=== PATIENT | female | born 1955 | race Hispanic/Latino ===

== ENCOUNTER 2019-04-16 14:04 | Inpatient (IN) | payer MEDICAID, MEDICARE ==
[~2019-04-16] VITALS: Ht 160 cm; Wt 43.6 kg
[~2019-04-16 14:04] MED LIST: BACTRIM-DS1 EA ORAL; CLONIDINE0.1 MG ORAL; FOLIC ACID1 MG ORAL; HALDOL INJECT5 MG/ML IM; MIRTAZAPINE7.5 MG ORAL; QUETIAPINE FUM100 MG ORAL; SEROQUEL25 MG ORAL; THIAMINE HCL100 MG ORAL; VENLAFAXINE HCL75 M2 ORAL; XANAX0.5 MG ORAL
--- NOTE | 2019-04-16 14:06 | NUR ---
ED Nurse Note: PT BIBA from [facility] Per EMS; Pt is here for an abscess on the 3rd digit of left hand. Pt is non-verbal; V/S stable with no s/s of acute distress noted at this time. ERMD at bedside evaluating the pt.
[2019-04-16 14:09] VITALS: BP 157/72
[2019-04-16] MEDS ORDERED: Bupivacaine 0.25% Inj 30ml INJ ONE (14:15)
--- NOTE | 2019-04-16 14:23 | Emergency Room Report ---
History of Present Illness General Chief Complaint: Skin Rash/Abscess Source: EMS Present Illness HPI Patient presents with infection of her left middle finger. She sent for evaluation here. The patient does not speak but nods yes and no to questions. She does complain of pain but will not rate the number. There is no reported fever. Patient does not communicate and is unable to answer questions. The patient was last admitted in 2014. Discharge diagnoses: 1. Complicated urinary tract infection with growth of Escherichia coli. 2. Nephrolithiasis with hydronephrosis. 3. Hematuria. 4. Proteinuria. Allergies: Coded Allergies: No Known Allergies (Unverified , 10/24/08) Patient History Limited by: medical condition Past Medical History: see triage record, old chart reviewed Past Surgical History: other - Back surgery for scoliosis Social History Narrative [facility] Reviewed Nursing Documentation: PMH: Agreed; PSxH: Agreed Nursing Documentation-PMH Hx Cardiac Problems: Yes - [place] 2000 Hx Cancer: No - benign ovarian tumors Hx Gastrointestinal Problems: No Hx Neurological Problems: Yes - scoliosis, non ambulatory Hx Cerebrovascular Accident: Yes Hx Transient Ischemic Attacks: No Hx Dementia: No Hx Alzheimer's Disease: No Hx Parkinson's Disease: No Hx Meningitis: No Hx Encephalitis: No Hx Seizures: No Hx Epilepsy: No Hx Multiple Sclerosis: No Hx Cerebral Palsy: No Hx Amyotrophic Lat Sclerosis: No Hx [place] Syndrome: No Hx Paralysis: No Hx Peripheral Neuropathy: No Hx Spinal Cord Injury: No Hx Head Trauma: No Hx Traumatic Brain Injury: No Hx Memory Loss: Yes Hx Concentration Difficulty: Yes Hx Speech Problem: Yes Hx Tremors: Yes - left arm tremor Hx Vertigo: No Hx Dizziness: No Hx Syncope: No Hx Headaches: No Hx Aphasia: No Hx Dysphasia: No Hx Numbness: No Hx Weakness: Yes Hx Fatigue: No Hx Neurologic Surgery: Yes - surgery on back (for scoliosis) in Hx Brain Shunt: No Review of Systems All Other Systems: limited Physical Exam Vital Signs Date Time Temp Pulse Resp B/P (MAP) Pulse Ox O2 Delivery O2 Flow Rate FiO2 04/16/19 14:06 98.2 92 16 157/72 (100) 98 Room Air Sp02 EP Interpretation: reviewed, normal General Appearance: alert, Chronically Ill Head: normocephalic Eyes: bilateral eye normal inspection, bilateral eye PERRL, bilateral eye EOMI ENT: moist mucus membranes Neck: supple Respiratory: lungs clear, normal breath sounds Cardiovascular #1: regular rate, rhythm Cardiovascular #2: 2+ radial (R) Gastrointestinal: normal inspection, normal bowel sounds, non tender, no mass, non-distended Genitourinary: no CVA tenderness Musculoskeletal: back normal, normal range of motion, other - Extensor contractions lower extremities Neurologic: alert, other - Abulic but sometimes nods yes and no Psychiatric: other - Apprehensive and attempting to scratch examiner Skin: other - Positive for lesion left middle finger around fingernail Procedures Incision and Drainage Incision and Drainage : Consent: Verbal Site: l middle finger Blade Size: 11 I & D Procedure: betadine prep, sterile drapes applied, sterile dressing applied, gauze wick placed Wound Location: upper extremity Wound's Depth, Shape: superficial Wound Explored: contaminated Irrigated w/ Saline (ccs): 20 Anesthesia: other - .25% bupivicaine Volume Anesthetic (ccs): 4 Splint Applied?: No Patient Tolerated: Well Complications: None Progress After digital block the area was prepped with Betadine. The abscess/paronychia was lanced and unroofed. A small amount of the lateral fingernail was excised. The wound was copiously irrigated. The dressing was applied. Medical Decision Making Diagnostic Impression: Primary Impression: Paronychia ER Course Patient presents with obvious paronychia of the left middle finger. Incision and drainage is indicated. Please see procedure note. Behavioral restraints are applied because the patient is scratching. Notify Dr. Chan patient stable for outpatient treatment. He requested to admit the patient for 23-hour observation. Last Vital Signs Date Time Temp Pulse Resp B/P (MAP) Pulse Ox O2 Delivery O2 Flow Rate FiO2 04/16/19 21:00 Room Air 04/16/19 20:00 97.7 78 18 136/71 (92) 97 Status: improved Disposition: PLACE IN OBSERVATION Condition: Improved Scripts Acetaminophen (Tylenol) 325 Mg Tablet 650 MG ORAL Q6H PRN for Prn Pain/Headache/Temp > 101, #20 TAB 0 Refills Prov: Festus Keyes MD 04/16/19 Bacitracin (Bacitracin) 28.4 Gm Oint...g. 1 APPLIC TOPIC BID, #20 GM Prov: Festus Keyes MD 11/3/19 Trimethoprim/Sulfamethoxazole 160/800* (BACTRIM DS TABLET*) 1 Each Tablet 1 TAB ORAL Q12H, #14 TAB 0 Refills Prov: Festus Keyes MD 04/16/19 Festus Keyes MD Apr 16, 2019 14:23
[2019-04-16] MEDS ORDERED: Bactrim-DS 1 tab ORAL ONE (14:30)
[2019-04-16] MEDS ORDERED: Bacitracin Oint UD TOPIC ONE (14:30)
[2019-04-16] MEDS ORDERED: Tetanus/Diptheria/Pertussis IM ONE (14:30)
[2019-04-16] MEDS ORDERED: BACTRIM DS TAB1 EAC1 ORAL (14:50)
[2019-04-16] MEDS ORDERED: TYLENOL325 MG ORAL (14:50)
[2019-04-16] MEDS ORDERED: BACITRACIN15 GM TOPIC (14:50)
[2019-04-16 16:23] VITALS: BP 156/78
--- NOTE | 2019-04-16 16:45 | NUR ---
ER DISCHARGE NOTE: Patient is getting transferred to [facility] with all her belonging accompanied by heat treatment technician. Pt V/S stable with no s/s of acute distress noted at this time. VRE and MRSA culture swabs collected.
--- NOTE | 2019-04-16 16:45 | NUR ---
ED Nurse Note: Report given to BARTOLO Molina over in Med-Surg.
--- NOTE | 2019-04-16 16:57 | NUR ---
NURSE NOTES: paged dr Chan for admit orders, awaiting orders
--- NOTE | 2019-04-16 17:15 | NUR ---
NURSE NOTES: PT RECEIVED FROM EMERGENCY ROOM. ONLY BELONGINGS INCLUDE SHIRT AND PANTS. PT RECEIVED WITH NO IV ACCESS. PER BARTOLO PERRY, THERE WAS NO NEED. LABS ALSO NOT DRAWN FOR PT. NO PRESSURE ULCERS DURING SKIN ASSESSMENT. SURGICAL WOUND NOTED ON LEFT HAND, THIRD DIGIT. DR DE JESUS AT BEDSIDE FOR ASSESSMENT. PER DR DE JESUS, OK FOR DAILY DRY DRESSING. PT THREW CALL LIGHT ACROSS THE ROOM. IV ACCESS ON LEFT FOREARM ESTABLISHED. BED IN LOWEST POSITION WITH BEDSIDE RAILS X3 RAISED. BED ALARM ON. PT PLACED IN YELLOW GOWN, YELLOW SOCKS AND FALL PRECAUTIONS BAND. PLACED INHIGH ARMSTRONG'S POSITION. WILL CONTINUE TO MONITOR.
--- NOTE | 2019-04-16 18:45 | NUR ---
NURSE NOTES: IV ACCESS FOUND ON BED. WILL ENDORSE TO NEXT RN.
--- NOTE | 2019-04-16 19:25 | Consultation ---
History of Present Illness General Date patient seen: Apr 16, 2019 Chief Complaint: Skin Rash/Abscess Present Illness HPI 64F with multiple medical comorbidities who is from [facility] presented with left middle finger abscess, cellulitis, infection. patient non verbal at baseline but does follow some commands. she likely has psych history given movements and temperament. I&D in ED. Surgery called to evaluate and assist with care. patient seen, chart reviewed, patient examined. labs noted. exam as below. Allergies: Coded Allergies: No Known Allergies (Unverified , 10/24/08) Medication History Scheduled Alprazolam* (Xanax*), 0.5 MG ORAL THREE TIMES A DAY, (Reported) Bacitracin (Bacitracin), 1 APPLIC TOPIC BID Folic Acid* (Folic Acid*), 1 MG ORAL DAILY, (Reported) Mirtazapine* (Mirtazapine*), 7.5 MG ORAL BID, (Reported) Thiamine Hcl (Vitamin B1*), 100 MG ORAL DAILY, (Reported) Trimethoprim/Sulfamethoxazole (Bactrim Ds Tablet), 1 TAB ORAL TWICE A DAY, ( Reported) Trimethoprim/Sulfamethoxazole 160/800* (Bactrim Ds Tablet*), 1 TAB ORAL Q12H Scheduled PRN Acetaminophen (Tylenol), 650 MG ORAL Q6H PRN for Prn Pain/Headache/Temp > 101 Clonidine HCl (Clonidine HCl), 0.1 MG ORAL EVERY 8 HOURS PRN for For High Blood Pressure, (Reported) Haloperidol Lactate (Haloperidol Lactate), 2 MG IM Q6HR PRN for Agitation, ( Reported) Quetiapine Fumarate* (Seroquel*), 50 MG ORAL EVERY 6 HOURS PRN for Agitation, ( Reported) Patient History Limited by: medical condition History Provided By: Medical Record, PMD Healthcare decision maker LION SHANKS Resuscitation status Full Code Advanced Directive on File Past Medical/Surgical History Past Medical/Surgical History: (1) Failure to thrive (2) Confusion (3) Paraparesis of lower extremity due to spinal cord ischemia (4) Psychosis, affective (5) r/o cerebral palsy (6) abdomen ditension r/o mass lesion (7) Constipation (8) UTI (lower urinary tract infection) (9) Constipation (10) Serum lipids high (11) Nephrolithiasis (12) Psychiatric disorder (13) UTI (lower urinary tract infection) (14) Paronychia Review of Systems All Other Systems: negative except mentioned in HPI ROS Narrative cannot obtain given medical condition Physical Exam General Appearance: no apparent distress Lines, tubes and drains: peripheral HEENT: mucous membranes moist Neck: non-tender, normal inspection Respiratory/Chest: normal breath sounds, no respiratory distress, no accessory muscle use Cardiovascular/Chest: normal rate, regular rhythm Abdomen: normal bowel sounds, non tender, soft, no organomegaly, no mass Extremities: normal range of motion, non-tender, normal inspection, no calf tenderness, normal capillary refill, non-pitting Skin Exam: warm/dry, other - left hand middle finger DIP abscess s/p I&D Neurologic: alert Last 24 Hour Vital Signs Date Time Temp Pulse Resp B/P (MAP) Pulse Ox O2 Delivery O2 Flow Rate FiO2 04/16/19 18:24 Room Air 04/16/19 16:45 98.0 80 15 156/78 98 Room Air 04/16/19 16:23 98.0 80 15 156/78 98 Room Air 04/16/19 14:09 98.2 92 16 157/72 98 Room Air 04/16/19 14:06 98.2 92 16 157/72 (100) 98 Room Air Height (Feet): 5 Height (Inches): 3.00 Weight (Pounds): 140 Medications Current Medications Medications (Trade) Dose Ordered Sig/Marie Route PRN Reason Start Time Stop Time Status Last Admin Dose Admin Acetaminophen (Tylenol) 650 mg Q4H PRN ORAL Mild Pain/Temp > 100.5 04/16/19 17:30 05/16/19 17:29 Folic Acid (Folate) 1 mg DAILY ORAL 04/17/19 09:00 05/17/19 08:59 Mirtazapine (Remeron) 7.5 mg BEDTIME ORAL 04/16/19 21:00 05/16/19 20:59 Multivitamins (Multivitamins) 1 tab DAILY ORAL 04/17/19 09:00 05/17/19 08:59 Thiamine HCl (Vitamin B1) 100 mg DAILY ORAL 04/17/19 09:00 05/17/19 08:59 Vancomycin HCl (Vanco rx to dose) 1 ea DAILY PRN MISC Per rx protocol 04/16/19 19:15 05/16/19 19:14 Vancomycin/Sodium Chloride 275 ml @ 183.333 mls/hr Q24H IVPB 04/16/19 20:00 04/21/19 19:59 Assessment/Plan Problem List: (1) Abscess of left middle finger Assessment & Plan: 64F with left middle finger abscess s/p I&D cellulitis tender mild drainage erythema -wash daily with NS / soap and water - apply skin protectant and dressings daily and prn saturation - Abx as per ID - will monitor until improved -thank you will follow with recs ICD Codes: L02.512 - Cutaneous abscess of left hand SNOMED: [id number] (2) Cellulitis of left middle finger Assessment & Plan: as above ICD Codes: L03.012 - Cellulitis of left finger SNOMED: [id number] Travis Henao Apr 16, 2019 19:25
[2019-04-16] MEDS ORDERED: MULTIVITAMINS1 EAC8 ORAL (19:40)
--- NOTE | 2019-04-16 19:40 | NUR ---
NURSE NOTES: Received report from BARTOLO Molina. AAO x 1, confuse, on room air. No IV access noted, will insert new IV. Pt took off dressing on L 3rd finger. No acute distress noted at this time. Bed locked, lowest position, side rails up, call light within reach. Will continue to monitor.
--- NOTE | 2019-04-16 19:55 | NUR ---
HAND-OFF: Report given to Francisco NELSON RN.
[2019-04-16 20:00] VITALS: BP 136/71
[2019-04-16] MEDS ORDERED: Vancomycin 1.25gm/NS Premix IVPB SCH (20:00)
--- NOTE | 2019-04-16 21:00 | NUR ---
NURSE NOTES: Inserted new IV R FA 22G and wrapped with kerlix. Pt was uncooperative.
[2019-04-17 04:00] VITALS: BP 143/80
[2019-04-17 07:25] LABS: BASOPHILS % (AUTO) 1.3 % (0.0-2.0); EOSINOPHILS % (AUTO) 2.2 % (0.0-3.0); HEMOGLOBIN 13.2 G/DL (12.0-16.0); LYMPHOCYTES % (AUTO) 26.5 % (20.0-45.0); MEAN CORPUSCULAR VOLUME 89 FL (80-99); MONOCYTES % (AUTO) 8.3 % (1.0-10.0); NEUTROPHILS % (AUTO) 61.6 % (45.0-75.0); PLATELET COUNT 207 K/UL (150-450); RED BLOOD COUNT 4.26 M/UL (4.20-5.40); RED CELL DISTRIBUTION WIDTH 11.1 % (11.6-14.8); WHITE BLOOD COUNT 9.4 K/UL (4.8-10.8)
--- NOTE | 2019-04-17 07:30 | NUR ---
NURSE NOTES: Received pt from LOUISE MCFARLAND. Pt is confused x1. pt is in RA, no SOB or acute respiratory distress noted. Pt has intact iv access RFA 22G SL. All needs attended, bed is locked and is in the lowest position. call light within easy reach. will continue to monitor.
--- NOTE | 2019-04-17 07:32 | NUR ---
HAND-OFF: Report given to BARTOLO Keene.
[2019-04-17 07:47] LABS: ALANINE AMINOTRANSFERASE 13 U/L (12-78); ALBUMIN 3.1 G/DL (3.4-5.0); ALBUMIN/GLOBULIN RATIO 0.8 (1.0-2.7); ALKALINE PHOSPHATASE 60 U/L (46-116); ANION GAP 4 mmol/L (5-15); ASPARTATE AMINO TRANSFERASE 16 U/L (15-37); BILIRUBIN,TOTAL 0.4 MG/DL (0.2-1.0); BLOOD UREA NITROGEN 18 mg/dL (7-18); CALCIUM 8.5 MG/DL (8.5-10.1); CARBON DIOXIDE 28 MMOL/L (21-32); CHLORIDE 109 MMOL/L (98-107); CREATININE 0.8 MG/DL (0.55-1.30); SODIUM 141 MMOL/L (136-145)
[2019-04-17 08:00] VITALS: BP_SYST 158; BP_SYST 161; BP_DIAS 85
[2019-04-17] MEDS: Thiamine 100mg tab ORAL SCH (09:12)
--- NOTE | 2019-04-17 11:09 | Surgery Progress Note ---
Surgery Progress Note Subjective Symptoms: improved Additional Comments no acute events comfortable stable Objective Last 24 Hour Vital Signs Date Time Temp Pulse Resp B/P (MAP) Pulse Ox O2 Delivery O2 Flow Rate FiO2 04/17/19 09:00 Room Air 04/17/19 08:00 97.8 77 18 158/85 (109) 96 04/17/19 04:00 96.5 73 18 143/80 (101) 95 04/16/19 21:00 Room Air 04/16/19 20:00 97.7 78 18 136/71 (92) 97 04/16/19 18:24 Room Air 04/16/19 16:45 98.0 80 15 156/78 98 Room Air 04/16/19 16:23 98.0 80 15 156/78 98 Room Air 04/16/19 14:09 98.2 92 16 157/72 98 Room Air 04/16/19 14:06 98.2 92 16 157/72 (100) 98 Room Air I&O Intake and Output 04/16/19 04/17/19 19:00 07:00 Intake Total 60 ml 366.6 ml Balance 60 ml 366.6 ml Intake Oral 60 ml IV Total 366.6 ml # Voids 4 Dressing: dry Wound: clean Cardiovascular: RSR Respiratory: clear Abdomen: soft, flat, present bowel sounds, non-distended Extremities: edema, tenderness, no cyanosis Laboratory Tests Test 04/17/19 06:45 White Blood Count 9.4 K/UL (4.8-10.8) Red Blood Count 4.26 M/UL (4.20-5.40) Hemoglobin 13.2 G/DL (12.0-16.0) Hematocrit 38.0 % (37.0-47.0) Mean Corpuscular Volume 89 FL (80-99) Mean Corpuscular Hemoglobin 31.0 PG (27.0-31.0) Mean Corpuscular Hemoglobin Concent 34.8 G/DL (32.0-36.0) Red Cell Distribution Width 11.1 % (11.6-14.8) L Platelet Count 207 K/UL (150-450) Mean Platelet Volume 6.4 FL (6.5-10.1) L Neutrophils (%) (Auto) 61.6 % (45.0-75.0) Lymphocytes (%) (Auto) 26.5 % (20.0-45.0) Monocytes (%) (Auto) 8.3 % (1.0-10.0) Eosinophils (%) (Auto) 2.2 % (0.0-3.0) Basophils (%) (Auto) 1.3 % (0.0-2.0) Sodium Level 141 MMOL/L (136-145) Potassium Level 4.0 MMOL/L (3.5-5.1) Chloride Level 109 MMOL/L (98-107) H Carbon Dioxide Level 28 MMOL/L (21-32) Anion Gap 4 mmol/L (5-15) L Blood Urea Nitrogen 18 mg/dL (7-18) Creatinine 0.8 MG/DL (0.55-1.30) Estimat Glomerular Filtration Rate > 60 mL/min (>60) Glucose Level 84 MG/DL (74-106) Calcium Level 8.5 MG/DL (8.5-10.1) Total Bilirubin 0.4 MG/DL (0.2-1.0) Aspartate Amino Transf (AST/SGOT) 16 U/L (15-37) Alanine Aminotransferase (ALT/SGPT) 13 U/L (12-78) Alkaline Phosphatase 60 U/L (46-116) Total Protein 6.9 G/DL (6.4-8.2) Albumin 3.1 G/DL (3.4-5.0) L Globulin 3.8 g/dL Albumin/Globulin Ratio 0.8 (1.0-2.7) L Plan Problems: (1) Abscess of left middle finger Assessment & Plan: 64F with left middle finger abscess s/p I&D cellulitis tender mild drainage erythema -wash daily with NS / soap and water - apply skin protectant and dressings daily and prn saturation - Abx as per ID - will monitor until improved -thank you will follow with recs (2) Cellulitis of left middle finger Assessment & Plan: as above Travis Henao Apr 17, 2019 11:09
[2019-04-17 12:00] VITALS: BP 158/83
--- NOTE | 2019-04-17 15:59 | Consultation ---
Consult Note Consult Note Dr Figueroa asked me to assist with BP management ER: Chief Complaint: Skin Rash/Abscess Patient presents with infection of her left middle finger. She sent for evaluation here. The patient does not speak but nods yes and no to questions. She does complain of pain but will not rate the number. There is no reported fever. No Known Allergies (Unverified , 10/24/08) Hx Cardiac Problems: Yes - [place] 2000 Hx Cancer: No - benign ovarian tumors Hx Neurological Problems: Yes - scoliosis, non ambulatory Hx Cerebrovascular Accident: Yes Hx Memory Loss: Yes Hx Concentration Difficulty: Yes Hx Speech Problem: Yes Hx Tremors: Yes - left arm tremor Hx Weakness: Yes Hx Neurologic Surgery: Yes - surgery on back (for scoliosis) in . Assessment/Plan HTN OOC UTI Abcesss left Mid finger Cellulitis left mid finger PO Norvasc Per consultants Antibiotics Aly Guillaume MD Apr 17, 2019 15:59
[2019-04-17 16:00] VITALS: BP 150/79
--- NOTE | 2019-04-17 18:15 | NUR ---
NURSE NOTES: Urin specimen sent to lab, waiting for result.
[2019-04-17 18:53] LABS: APPEARANCE,URINE CLOUDY; BILIRUBIN, URINE NEGATIVE (NEGATIVE); COLOR,URINE PALE YELLOW; GLUCOSE, URINE (UA) NEGATIVE (NEGATIVE); KETONES,URINE NEGATIVE (NEGATIVE); LEUKOCYTE ESTERASE ,URINE 3+ (NEGATIVE); NITRITE,URINE POSITIVE (NEGATIVE); PH,URINE 5 (4.5-8.0); PROTEIN,URINE 3+ (NEGATIVE); UROBILINOGEN,URINE NORMAL MG/DL (0.0-1.0)
--- NOTE | 2019-04-17 19:22 | NUR ---
HAND-OFF: Report given to RAYMOND ARCINIEGA RN.Pt is awake and stable.
--- NOTE | 2019-04-17 19:37 | NUR ---
NURSE NOTES: Patient in bed, awake, alert and confused. Breathing on room air. Respiration is even and unlabored. No complaint of pain or discomfort noted. Skin is warm and dry to touch. IV site on Right fore arm patent and intact. Fall precaution and aspiration precaution is in place. Bed in low and locked position. Bed alarm is on.Call light within reach. Will continue to monitor for safety.
[2019-04-17 20:00] VITALS: BP 149/88
--- NOTE | 2019-04-17 20:15 | Consultation ---
DATE OF CONSULTATION: 04/17/2019 INFECTIOUS DISEASE CONSULTATION CONSULTING PHYSICIAN: Marlon Chand M.D. PRIMARY ATTENDING: Conchita Chan M.D. REASON FOR CONSULT: Paronychia and finger abscess. HISTORY OF PRESENT ILLNESS: The patient is a 64-year-old female who is a [facility] resident admitted yesterday because of erythema of left middle finger around the finger line. In ER, the patient was diagnosed with an abscess and had I and D, started on antibiotics. Very poor historian. PAST MEDICAL HISTORY: Significant for scoliosis, coronary artery disease and history of [place], major depression, history of CVA, history of Wernicke's encephalopathy, and history of surgery for scoliosis. ALLERGIES: No known drug allergies. MEDICATIONS: Folic acid, multivitamin, thiamine, Remeron, vancomycin. SOCIAL HISTORY: jail resident. No history of alcohol, drug abuse, or smoking. . REVIEW OF SYSTEMS: Unobtainable. Very limited. The patient could nod yes and no. Has no pain. PHYSICAL EXAMINATION: VITAL SIGNS: Current temperature is 99.8, pulse 77, blood pressure 168/85. GENERAL APPEARANCE: No acute distress. HEAD AND NECK: [place] conjunctiva. HEART: Normal rate. LUNGS: Clear. ABDOMEN: Soft, nontender. EXTREMITIES: No edema. Has muscle atrophy in legs. SKIN: Has erythema of her left middle finger. LABORATORY DATA: Wound culture from finger shows Staph aureus 4+. WBC 9.4, hemoglobin 13.2, hematocrit 38, platelets 207. Sodium 141, potassium 4, chloride 109, bicarb 28, BUN 18, creatinine 0.8, glucose is 84. IMPRESSION: Paronychia with abscess. Culture growing Staph aureus. Has hypertension, major depression. RECOMMENDATION: We will change IV vancomycin to oral doxycycline. We will follow up the wound culture. At the end of my exam, I thank Dr. Chan for involving me in the care of this patient. Marlon Chand M.D. DR: NADIA JOB#: [id number] CC:
[2019-04-17] MEDS: Doxycycline Monohydrate 100mg ORAL SCH (21:42)
[2019-04-18] VITALS: BP 147/76
--- NOTE | 2019-04-18 00:55 | NUR ---
NURSE NOTES: Pt is in bed, asleep. Evening meds administered as ordered. Bed in low and locked position. Call light within reach. Will continue to monitor for safety.
--- NOTE | 2019-04-18 03:30 | History and Physical Report ---
DATE OF ADMISSION: 04/16/2019 HISTORY OF PRESENT ILLNESS: The patient is a very poor historian. She is admitted for I and D of the finger infection and also intravenous antibiotics. The patient again is a very poor historian, cannot get any reliable history from the patient. PAST MEDICAL HISTORY: Status post constipation, status post psychosis, status post cerebral palsy, status post Wernicke's encephalopathy, and history of alcohol abuse. PAST SURGICAL HISTORY: The patient has a surgical scar on the chest, but cannot remember or tell me what kind of surgery she had in her left . ALLERGIES: No known allergies. MEDICATIONS: Folic acid, mirtazapine, thiamine, multivitamin. FAMILY HISTORY: Noncontributory. SOCIAL HISTORY: She has history of smoking. History of alcohol abuse. Comes from a long-term. REVIEW OF SYSTEMS: Again, cannot rely upon review of systems. The patient is a very poor historian. PHYSICAL EXAMINATION: VITAL SIGNS: Temperature is 96.5, pulse is 73, blood pressure 143/80. HEENT: PERRLA. NECK: Supple. No lymphadenopathy. CHEST: Clear to auscultation. CARDIOVASCULAR: Regular rate and rhythm. No murmurs or extra sounds. GASTROINTESTINAL: Soft, nontender, and nondistended. No organomegaly. EXTREMITIES: No edema. Reflexes equal on both sides. NEUROLOGIC: Oriented to name only. LABORATORY DATA: WBC of 9.4, hemoglobin of 13.2, and platelets of 207,000. Sodium 141, potassium of 4, BUN of 18, and creatinine 0.8. ASSESSMENT AND PLAN: Hypertension, cellulitis of the finger. I have asked Dr. Marlon Chand, Dr. Guillaume, Dr. Travis Henao, and Dr. Day to see the patient for her multiple psychiatric issues as well as to see if the patient needs further incision and drainage, and also for IV antibiotics and also for the management of hypertension. Conchita Chan M.D. DR: Ana JOB#: [id number] CC:
[2019-04-18 04:00] VITALS: BP 145/83
[2019-04-18 08:00] VITALS: BP 106/86
[2019-04-18] MEDS: Thiamine 100mg tab ORAL SCH (08:18)
[2019-04-18] MEDS: Doxycycline Monohydrate 100mg ORAL SCH ×2 (08:18→21:36)
[2019-04-18 12:10] VITALS: BP 149/74
--- NOTE | 2019-04-18 12:49 | Infectious Diseases Prog Note ---
Assessment/Plan Assessment/Plan IMPRESSION: Paronychia with abscess. Culture growing Staph aureus (MRSA) MRSA carrier hypertension, major depression. RECOMMENDATION: Continue oral doxycycline Subjective ROS Limited/Unobtainable: Yes Neurologic: Reports: confusion Psychiatric: Reports: other - combative Musculoskeletal: Reports: other - finger pain Allergies: Coded Allergies: No Known Allergies (Unverified , 10/24/08) Objective Vital Signs Last 24 Hour Vital Signs Date Time Temp Pulse Resp B/P (MAP) Pulse Ox O2 Delivery O2 Flow Rate FiO2 04/18/19 12:10 76 18 149/74 (99) 98 04/18/19 08:30 Room Air 04/18/19 08:18 68 145/83 04/18/19 08:00 97.1 69 20 106/86 (93) 95 04/18/19 04:00 97.1 68 20 145/83 (103) 99 04/18/19 00:00 97.9 83 20 147/76 (99) 96 04/17/19 21:00 Room Air 04/17/19 20:00 98.1 77 20 149/88 (108) 96 04/17/19 16:29 72 150/79 04/17/19 16:00 97.6 72 18 150/79 (102) 95 Height (Feet): 5 Height (Inches): 3.00 Weight (Pounds): 140 General Appearance: no acute distress HEENT: mucous membranes moist Respiratory/Chest: lungs clear Cardiovascular: normal rate Abdomen: soft, non tender Extremities: no edema Skin: other - left middle finger erythema Neurologic/Psychiatric: alert, responsive, disoriented Microbiology Date/Time Source Procedure Growth Status 04/16/19 20:00 Nasal Aspirate MRSA Culture - Final Staphylococcus Aureus - Mrsa Complete 04/17/19 18:20 Urine,Clean Catch Urine Culture - Preliminary Resulted 04/16/19 15:30 Finger Left Middle Gram Stain - Final Complete 04/16/19 15:30 Wound Culture - Final Staphylococcus Aureus - Mrsa Complete Laboratory Tests Test 04/17/19 18:20 Urine Color Pale yellow Urine Appearance Cloudy Urine pH 5 (4.5-8.0) Urine Specific [place] 1.020 (1.005-1.035) Urine Protein 3+ (NEGATIVE) H Urine Glucose (UA) Negative (NEGATIVE) Urine Ketones Negative (NEGATIVE) Urine Blood 4+ (NEGATIVE) H Urine Nitrite Positive (NEGATIVE) H Urine Bilirubin Negative (NEGATIVE) Urine Urobilinogen Normal MG/DL (0.0-1.0) Urine Leukocyte Esterase 3+ (NEGATIVE) H Urine RBC 15-20 /HPF (0 - 2) H Urine WBC Tntc /HPF (0 - 2) H Urine Squamous Epithelial Cells Many /LPF (NONE/OCC) H Urine Bacteria Many /HPF (NONE) H Current Medications Medications (Trade) Dose Ordered Sig/Marie Route PRN Reason Start Time Stop Time Status Last Admin Dose Admin Acetaminophen (Tylenol) 650 mg Q4H PRN ORAL Mild Pain/Temp > 100.5 04/16/19 17:30 05/16/19 17:29 Amlodipine Besylate (Norvasc) 5 mg DAILY ORAL 04/18/19 09:00 05/18/19 08:59 04/18/19 08:18 Doxycycline Monohydrate (Doxycycline Monohydrate) 100 mg EVERY 12 HOURS ORAL 04/17/19 21:00 04/24/19 20:59 04/18/19 08:18 Folic Acid (Folate) 1 mg DAILY ORAL 04/17/19 09:00 05/17/19 08:59 04/18/19 08:18 Mirtazapine (Remeron) 7.5 mg BEDTIME ORAL 04/16/19 21:00 05/16/19 20:59 04/17/19 21:42 Multivitamins (Multivitamins) 1 tab DAILY ORAL 04/17/19 09:00 05/17/19 08:59 04/18/19 08:18 Thiamine HCl (Vitamin B1) 100 mg DAILY ORAL 04/17/19 09:00 05/17/19 08:59 04/18/19 08:18 Marlon Chand MD Apr 18, 2019 12:49
--- NOTE | 2019-04-18 13:54 | NUR ---
NOTES: REFERRED FOR SWALLOW EVAL BY DR LE (DR AGUILAR PRIMARY MD), SEE REPORT. DYSPHAGIA RISK FACTORS FOR THIS 64 Y.O.F.: ACUTE ISSUES: PARONYCHIA FINGER RASH/ABSCESS, LUNGS CLEAR PER MD NO CXR, RESTRAINTS SO SHE WON'T SCRATCH. H/O DYSPHAGIA (2008), [place] [facility] [place] ([place]), DEMENTIA, CEREBRAL PALSY, CVA (MEMORY AND CONCENTRATION DEFICITS), WERNICKE'S ENCEPHALOPATHY, PSYCH ISSUES (MDD ON XANAX), ALCOHOL ABUSE, HTN, MA 2000. NO POLST/AD REGARDING TUBE FEEDING PREFERENCES. ? DIET PRIOR TO ADMIT AND APPEARS TO LIVE AT HOME WITH FAMILY. NOW ON A MECH SOFT CHOPPED DIET AND THIN LIQUIDS WITH 0 TO 75% INTAKE. PER RN (BRIJESH), PT EATS SLOWLY BUT NO OVERT ASPIRATION. PER CLAIM CLINICIAN (LORENA), PATIENT COUGHS WITH MECH SOFT CHOPPED SOLID FOOD. NO OVERT ASP WITH THIN LIQUIDS PER CLAIM CLINICIAN. ALERT AND SELECTIVELY MUTE. ASKED CLAIM CLINICIAN FOR MACARONI AND CHEESE. GRABBED PEDIATRICIAN/MEDICAL DOCTOR WITH LEFT HAND AND SQUEEZED HARD. PATIENT DID NOT FOLLOW ORAL COMMANDS AND IS INCONSISTENT ANSWERING QUESTIONS OR SPEAKING. GOOD DENTITION BUT BITES DOWN ON PLASTIC SPOON. INITIAL IMPRESSIONS: S/S OF AT LEAST A MILD-MOD OROPHARYNGEAL DYSPHAGIA AND INCREASED ORAL PREP AND OROPHARYNGEAL TRANSIT TIMES. NO OVERT S/S OF ASPIRATION WITH PEDIATRICIAN/MEDICAL DOCTOR BUT PER CLAIM CLINICIAN COUGHED WITH CHOPPED SOLID FOOD DURING MEALS GIVEN THIN LIQUIDS VIA STRAW SEQUENTIAL SIP, NO OVERT ASPIRATION. GIVEN TSP PUREED, WILL CHEW IT UNNECESSARILY FOR A FEW SECONDS AND THEN SWALLOW (COULD NOT PALPATE THROAT DUE TO PT DISLIKING THIS) AND SWALLOWED AGAIN DUE TO MILD TONGUE/ORAL RESIDUE (SWALLOWED 2-3 SECONDS LATER AFTER CHEWING AGAIN WITH HER MOUTH OPEN. BITES DOWN HARD ON SPOON OR HAS MOUTH OPEN (NO LIP CLOSURE), NO OVERT ASPIRATION. GIVEN 1/2 CRACKER, CHEWED 15 SECONDS AND NEEDED TO SWALLOW AGAIN DUE TO MILD ORAL/TONGUE RESIDUE, NO OVERT ASPIRATION. HAS SILENT ASPIRATION RISK DUE TO CP, CVA, AND DEMENTIA DIAGNOSES. VARIABLE INTAKE BUT DID LIKE MAC/CHEESE AND APPLESAUCE. RECOMMENDATIONS: CONSIDER MOD BARIUM SWALLOW STUDY IP OR OP IF DC TO FURTHER ASSESS SWALLOW, DETERMINE SILENT ASP RISK AND ATTEMPT TRIAL TX IF PO CONTINUES FOR QUALITY OF LIFE AND TO BE MORE EFFICIENT IN EATING (SLOW INTAKE PER CLAIM CLINICIAN), CONSIDER DOWNGRADING TO PUREED AND CONTINUE WITH THIN LIQUIDS WITH POSTED ASP PRECAUTIONS AND ONE TO ONE FEEDING. SEND HIGH [employer] SUP PER RD HAVE SURGICAL CLINICAL REVIEWER TRY TO FIND OUT FOODS OF PREFERENCE IF POSSIBLE SKILLED DYSPHAGIA MANAGEMENT AND TX AND COG-COM EVAL/TX FOR COMMUNICATION TIPS. EDUCATED/TRAINED STAFF (FEEDER CIERRA NORTON, MARY CARRILLO, AND BARTOLO COLEY) IN POSTED PRECAUTIONS. Addendum: 04/18/19 at 1355 by DANIE MARY PEDIATRICIAN/MEDICAL DOCTOR CONSIDER SPOONS THAT HAVE COATING TO AVOID HAVING HER BREAK HER TEETH.
--- NOTE | 2019-04-18 14:22 | Diagnostic Imaging Report ---
APPROVED REPORT CPT Code: 28539 Present Symptoms Comments: AMS BILATERAL: Imaging reveals a patent deep venous system bilaterally. There is no evidence of thrombus within the femoral, popliteal or tibial segments. The greater saphenous veins are also within normal limits. Doppler indicates normal spontaneous flow within these segments.
--- NOTE | 2019-04-18 15:04 | Surgery Progress Note ---
Surgery Progress Note Subjective Symptoms: improved, pain absent, tolerating diet, voiding well, passing flatus , BM Objective Last 24 Hour Vital Signs Date Time Temp Pulse Resp B/P (MAP) Pulse Ox O2 Delivery O2 Flow Rate FiO2 04/18/19 12:10 76 18 149/74 (99) 98 04/18/19 08:30 Room Air 04/18/19 08:18 68 145/83 04/18/19 08:00 97.1 69 20 106/86 (93) 95 04/18/19 04:00 97.1 68 20 145/83 (103) 99 04/18/19 00:00 97.9 83 20 147/76 (99) 96 04/17/19 21:00 Room Air 04/17/19 20:00 98.1 77 20 149/88 (108) 96 04/17/19 16:29 72 150/79 04/17/19 16:00 97.6 72 18 150/79 (102) 95 I&O Intake and Output 04/17/19 04/18/19 19:00 07:00 Intake Total 600 ml 240 ml Balance 600 ml 240 ml Intake Oral 600 ml 240 ml # Voids 2 Dressing: dry Wound: clean Cardiovascular: RSR Respiratory: clear Abdomen: soft, flat, present bowel sounds, non-distended Extremities: edema - improved , no tenderness, no cyanosis Laboratory Tests Test 04/17/19 18:20 Urine Color Pale yellow Urine Appearance Cloudy Urine pH 5 (4.5-8.0) Urine Specific [place] 1.020 (1.005-1.035) Urine Protein 3+ (NEGATIVE) H Urine Glucose (UA) Negative (NEGATIVE) Urine Ketones Negative (NEGATIVE) Urine Blood 4+ (NEGATIVE) H Urine Nitrite Positive (NEGATIVE) H Urine Bilirubin Negative (NEGATIVE) Urine Urobilinogen Normal MG/DL (0.0-1.0) Urine Leukocyte Esterase 3+ (NEGATIVE) H Urine RBC 15-20 /HPF (0 - 2) H Urine WBC Tntc /HPF (0 - 2) H Urine Squamous Epithelial Cells Many /LPF (NONE/OCC) H Urine Bacteria Many /HPF (NONE) H Plan Problems: (1) Abscess of left middle finger Assessment & Plan: 64F with left middle finger abscess s/p I&D cellulitis tender mild drainage erythema -wash daily with NS / soap and water - apply skin protectant and dressings daily and prn saturation - Abx as per ID - will monitor until improved improved d/c planning -thank you will follow with recs (2) Cellulitis of left middle finger Assessment & Plan: as above Travis Henao Apr 18, 2019 15:04
--- NOTE | 2019-04-18 15:11 | Nephrology Progress Note ---
Assessment/Plan Problem List: (1) Cellulitis of left middle finger (2) UTI (lower urinary tract infection) (3) HTN (hypertension) Assessment HTN OOC UTI Abcesss left Mid finger Cellulitis left mid finger Plan PO Norvasc Per consultants Antibiotics Subjective ROS Limited/Unobtainable: No Constitutional: Reports: malaise Objective Objective Last 24 Hour Vital Signs Date Time Temp Pulse Resp B/P (MAP) Pulse Ox O2 Delivery O2 Flow Rate FiO2 04/18/19 12:10 76 18 149/74 (99) 98 04/18/19 08:30 Room Air 04/18/19 08:18 68 145/83 04/18/19 08:00 97.1 69 20 106/86 (93) 95 04/18/19 04:00 97.1 68 20 145/83 (103) 99 04/18/19 00:00 97.9 83 20 147/76 (99) 96 04/17/19 21:00 Room Air 04/17/19 20:00 98.1 77 20 149/88 (108) 96 04/17/19 16:29 72 150/79 04/17/19 16:00 97.6 72 18 150/79 (102) 95 Intake and Output 04/17/19 04/18/19 19:00 07:00 Intake Total 600 ml 240 ml Balance 600 ml 240 ml Intake Oral 600 ml 240 ml # Voids 2 Laboratory Tests 04/17/19 18:20: Urine Color Pale yellow, Urine Appearance Cloudy, Urine pH 5, Urine Specific [place] 1.020, Urine Protein 3+H, Urine Glucose (UA) Negative, Urine Ketones Negative, Urine Blood 4+H, Urine Nitrite PositiveH, Urine Bilirubin Negative, Urine Urobilinogen Normal, Urine Leukocyte Esterase 3+H, Urine RBC 15-20H, Urine WBC TntcH, Urine Squamous Epithelial Cells ManyH, Urine Bacteria ManyH Height (Feet): 5 Height (Inches): 3.00 Weight (Pounds): 140 General Appearance: no apparent distress Respiratory/Chest: lungs clear Abdomen: soft Objective no change Aly Guillaume MD Apr 18, 2019 15:11
[2019-04-18 15:41] VITALS: BP 130/74
--- NOTE | 2019-04-18 17:43 | NUR ---
nurse notes HL reinserted on left arm patient pulled out again, refused to reinsert a new line patient very combative chika jacques
--- NOTE | 2019-04-18 18:04 | NUR ---
nurse notes new HL inserted on right wrist G22 tolerated well ,wrap with kerlix tolerated well sawyer rn
--- NOTE | 2019-04-18 18:59 | NUR ---
HAND-OFF: Report given to BARTOLO ARCINIEGA RN.
--- NOTE | 2019-04-18 19:41 | NUR ---
NURSE NOTES: Patient in bed, awake, alert and confused. Breathing on room air. Respiration is even and unlabored. No complaint of pain or discomfort noted. Skin is warm and dry to touch. IV site patent and intact. Fall precaution and aspiration precaution is in place. Bed in low and locked position. Bed alarm is on.Call light within reach. Will continue to monitor for safety.
[2019-04-18 20:00] VITALS: BP 134/72
--- NOTE | 2019-04-18 21:13 | General Progress Note ---
Assessment/Plan Problem List: (1) Psychiatric disorder ICD Codes: F99 - Psychiatric disorder SNOMED: 09252147 (2) Paronychia SNOMED: 70087107 (3) HTN (hypertension) ICD Codes: I10 - Essential (primary) hypertension SNOMED: 93054136 Status: progressing Assessment/Plan: afebrile nac paronchyia improving dc in am abx per id Subjective ROS Limited/Unobtainable: Yes Allergies: Coded Allergies: No Known Allergies (Unverified , 10/24/08) Objective Last 24 Hour Vital Signs Date Time Temp Pulse Resp B/P (MAP) Pulse Ox O2 Delivery O2 Flow Rate FiO2 04/18/19 15:41 98.0 80 18 130/74 (92) 98 04/18/19 12:10 76 18 149/74 (99) 98 04/18/19 08:30 Room Air 04/18/19 08:18 68 145/83 04/18/19 08:00 97.1 69 20 106/86 (93) 95 04/18/19 04:00 97.1 68 20 145/83 (103) 99 04/18/19 00:00 97.9 83 20 147/76 (99) 96 Intake and Output 04/17/19 04/18/19 19:00 07:00 Intake Total 600 ml 240 ml Balance 600 ml 240 ml Intake Oral 600 ml 240 ml # Voids 2 Height (Feet): 5 Height (Inches): 3.00 Weight (Pounds): 140 Cardiovascular: normal rate Respiratory/Chest: lungs clear Abdomen: soft Conchita Chan MD Apr 18, 2019 21:13
[2019-04-19] VITALS: BP 126/74
[2019-04-19 04:00] VITALS: BP 137/68
--- NOTE | 2019-04-19 07:10 | NUR ---
HAND-OFF: Report given to Alex Platt RN.
--- NOTE | 2019-04-19 07:36 | NUR ---
NURSE NOTES: PT RESTING IN BED. PT EATING BREAKFAST WITH ASSIST OF STUDENT NURSE. PT IN HIGH-ARMSTRONG'S POSITION. IN NO APPARENT DISTRESS AT THIS TIME. BED IN LOWEST POSITION WITH BEDSIDE RAILS X3 RAISED. BED ALARM ON ZONE 1. CALL LIGHT WITHIN REACH. WILL CONTINUE TO MONITOR.
[2019-04-19 08:00] VITALS: BP 154/72
[2019-04-19 08:13] LABS: BASOPHILS % (AUTO) 0.7 % (0.0-2.0); EOSINOPHILS % (AUTO) 1.9 % (0.0-3.0); HEMATOCRIT 42.2 % (37.0-47.0); HEMOGLOBIN 14.6 G/DL (12.0-16.0); LYMPHOCYTES % (AUTO) 34.8 % (20.0-45.0); MEAN CORPUSCULAR VOLUME 89 FL (80-99); MONOCYTES % (AUTO) 7.5 % (1.0-10.0); PLATELET COUNT 263 K/UL (150-450); RED BLOOD COUNT 4.72 M/UL (4.20-5.40); RED CELL DISTRIBUTION WIDTH 10.6 % (11.6-14.8); WHITE BLOOD COUNT 7.9 K/UL (4.8-10.8)
[2019-04-19 08:28] LABS: ALANINE AMINOTRANSFERASE 17 U/L (12-78); ALBUMIN 3.5 G/DL (3.4-5.0); ALBUMIN/GLOBULIN RATIO 0.8 (1.0-2.7); ALKALINE PHOSPHATASE 68 U/L (46-116); ANION GAP 7 mmol/L (5-15); ASPARTATE AMINO TRANSFERASE 16 U/L (15-37); BILIRUBIN,TOTAL 0.5 MG/DL (0.2-1.0); BLOOD UREA NITROGEN 15 mg/dL (7-18); CALCIUM 9.4 MG/DL (8.5-10.1); CARBON DIOXIDE 29 MMOL/L (21-32); CHLORIDE 105 MMOL/L (98-107); CREATININE 0.7 MG/DL (0.55-1.30); PHOSPHORUS 3.6 MG/DL (2.5-4.9); POTASSIUM 4.2 MMOL/L (3.5-5.1); SODIUM 141 MMOL/L (136-145)
[2019-04-19] MEDS: Doxycycline Monohydrate 100mg ORAL SCH (08:35)
[2019-04-19] MEDS: Thiamine 100mg tab ORAL SCH (08:36)
[2019-04-19] MEDS ORDERED: DOXYCYCLINE MO100 MG ORAL (10:10)
--- NOTE | 2019-04-19 11:03 | Nephrology Progress Note ---
Assessment/Plan Problem List: (1) HTN (hypertension) (2) UTI (lower urinary tract infection) (3) Cellulitis of left middle finger Assessment HTN OOC UTI Abcesss left Mid finger Cellulitis left mid finger Plan PO Norvasc mag supplement Per consultants Antibiotics Subjective ROS Limited/Unobtainable: No Objective Objective Last 24 Hour Vital Signs Date Time Temp Pulse Resp B/P (MAP) Pulse Ox O2 Delivery O2 Flow Rate FiO2 04/19/19 09:00 Room Air 04/19/19 08:35 81 154/72 04/19/19 08:00 98.0 81 18 154/72 (99) 99 04/19/19 04:00 98.2 64 17 137/68 (91) 99 04/19/19 00:00 97.5 73 18 126/74 (91) 96 04/18/19 21:00 Room Air 04/18/19 20:00 98.3 74 19 134/72 (92) 96 04/18/19 15:41 98.0 80 18 130/74 (92) 98 04/18/19 12:10 76 18 149/74 (99) 98 Intake and Output 04/18/19 04/19/19 19:00 07:00 Intake Total 600 ml 360 ml Balance 600 ml 360 ml Intake Oral 600 ml 360 ml # Voids 3 3 # Bowel Movements 1 Laboratory Tests 04/19/19 07:10: White Blood Count 7.9, Red Blood Count 4.72, Hemoglobin 14.6, Hematocrit 42.2, Mean Corpuscular Volume 89, Mean Corpuscular Hemoglobin 30.9, Mean Corpuscular Hemoglobin Concent 34.6, Red Cell Distribution Width 10.6L, Platelet Count 263, Mean Platelet Volume 6.2L, Neutrophils (%) (Auto) 55.0, Lymphocytes (%) (Auto) 34.8, Monocytes (%) (Auto) 7.5, Eosinophils (%) (Auto) 1.9, Basophils (%) (Auto ) 0.7, Sodium Level 141, Potassium Level 4.2, Chloride Level 105, Carbon Dioxide Level 29, Anion Gap 7, Blood Urea Nitrogen 15, Creatinine 0.7, Estimat Glomerular Filtration Rate > 60, Glucose Level 86, Calcium Level 9.4, Phosphorus Level 3.6, Magnesium Level 1.7L, Total Bilirubin 0.5, Aspartate Amino Transf (AST/SGOT) 16, Alanine Aminotransferase (ALT/SGPT) 17, Alkaline Phosphatase 68, Total Protein 7.8, Albumin 3.5, Globulin 4.3, Albumin/Globulin Ratio 0.8L, Vitamin B12 Level 735, Folate 47.8 Height (Feet): 5 Height (Inches): 3.00 Weight (Pounds): 96 General Appearance: no apparent distress Objective no change Aly Guillaume MD Apr 19, 2019 11:03
[2019-04-19] MEDS ORDERED: HydrALAZINE 25mg tab ORAL PRN (11:15)
--- NOTE | 2019-04-19 11:42 | NUR ---
NURSE NOTES: RN LEFT MESSAGE FOR DR Carrie SCHREIBER REGARDING ISOLATION STATUS UPON DISCHARGE.
[2019-04-19 11:49] VITALS: BP 141/77
--- NOTE | 2019-04-19 11:59 | NUR ---
NURSE NOTES: PT'S MAGNESIUM LEVEL 1.7 TODAY WITH DISCHARGE. RN LEFT MESSAGE FOR DR LE'S OFFICE TO CLARIFY IF PT TO CONTINUE TAKING ORDERED MAGNESIUM 400MG PO TID. AWAITING NEW ORDERS.
--- NOTE | 2019-04-19 12:40 | Infectious Diseases Prog Note ---
Assessment/Plan Assessment/Plan IMPRESSION: Paronychia with abscess. Culture growing Staph aureus (MRSA) MRSA carrier hypertension, major depression. RECOMMENDATION: Continue oral doxycycline Agree with discharge to SNF Case was D/W RN Subjective ROS Limited/Unobtainable: Yes Musculoskeletal: Reports: no symptoms Allergies: Coded Allergies: No Known Allergies (Unverified , 10/24/08) Objective Vital Signs Last 24 Hour Vital Signs Date Time Temp Pulse Resp B/P (MAP) Pulse Ox O2 Delivery O2 Flow Rate FiO2 04/19/19 11:49 97.5 80 20 141/77 (98) 97 04/19/19 09:00 Room Air 04/19/19 08:35 81 154/72 04/19/19 08:00 98.0 81 18 154/72 (99) 99 04/19/19 04:00 98.2 64 17 137/68 (91) 99 04/19/19 00:00 97.5 73 18 126/74 (91) 96 04/18/19 21:00 Room Air 04/18/19 20:00 98.3 74 19 134/72 (92) 96 04/18/19 15:41 98.0 80 18 130/74 (92) 98 Height (Feet): 5 Height (Inches): 3.00 Weight (Pounds): 96 General Appearance: no acute distress HEENT: mucous membranes moist Respiratory/Chest: lungs clear Cardiovascular: normal rate Abdomen: soft, non tender Extremities: no edema Skin: other - left third finger tip erythema Neurologic/Psychiatric: alert, responsive Microbiology Date/Time Source Procedure Growth Status 04/16/19 20:00 Nasal Aspirate MRSA Culture - Final Staphylococcus Aureus - Mrsa Complete 04/17/19 18:20 Urine,Clean Catch Urine Culture - Preliminary Gram Negative Bacillus 1 Resulted 04/16/19 20:00 Rectum - Final NO CARBAPENEM-RESISTANT ENTEROBACTERI... Complete 04/16/19 20:00 Rectum VRE Culture - Final NO VANCOMYCIN RESISTANT ENTEROCOCCUS ... Complete 04/16/19 15:30 Finger Left Middle Gram Stain - Final Complete 04/16/19 15:30 Wound Culture - Final Staphylococcus Aureus - Mrsa Complete Laboratory Tests Test 04/19/19 07:10 White Blood Count 7.9 K/UL (4.8-10.8) Red Blood Count 4.72 M/UL (4.20-5.40) Hemoglobin 14.6 G/DL (12.0-16.0) Hematocrit 42.2 % (37.0-47.0) Mean Corpuscular Volume 89 FL (80-99) Mean Corpuscular Hemoglobin 30.9 PG (27.0-31.0) Mean Corpuscular Hemoglobin Concent 34.6 G/DL (32.0-36.0) Red Cell Distribution Width 10.6 % (11.6-14.8) L Platelet Count 263 K/UL (150-450) Mean Platelet Volume 6.2 FL (6.5-10.1) L Neutrophils (%) (Auto) 55.0 % (45.0-75.0) Lymphocytes (%) (Auto) 34.8 % (20.0-45.0) Monocytes (%) (Auto) 7.5 % (1.0-10.0) Eosinophils (%) (Auto) 1.9 % (0.0-3.0) Basophils (%) (Auto) 0.7 % (0.0-2.0) Sodium Level 141 MMOL/L (136-145) Potassium Level 4.2 MMOL/L (3.5-5.1) Chloride Level 105 MMOL/L (98-107) Carbon Dioxide Level 29 MMOL/L (21-32) Anion Gap 7 mmol/L (5-15) Blood Urea Nitrogen 15 mg/dL (7-18) Creatinine 0.7 MG/DL (0.55-1.30) Estimat Glomerular Filtration Rate > 60 mL/min (>60) Glucose Level 86 MG/DL (74-106) Calcium Level 9.4 MG/DL (8.5-10.1) Phosphorus Level 3.6 MG/DL (2.5-4.9) Magnesium Level 1.7 MG/DL (1.8-2.4) L Total Bilirubin 0.5 MG/DL (0.2-1.0) Aspartate Amino Transf (AST/SGOT) 16 U/L (15-37) Alanine Aminotransferase (ALT/SGPT) 17 U/L (12-78) Alkaline Phosphatase 68 U/L (46-116) Total Protein 7.8 G/DL (6.4-8.2) Albumin 3.5 G/DL (3.4-5.0) Globulin 4.3 g/dL Albumin/Globulin Ratio 0.8 (1.0-2.7) L Vitamin B12 Level 735 PG/ML (193-986) Folate 47.8 NG/ML (8.6-58.9) Current Medications Medications (Trade) Dose Ordered Sig/Marie Route PRN Reason Start Time Stop Time Status Last Admin Dose Admin Acetaminophen (Tylenol) 650 mg Q4H PRN ORAL Mild Pain/Temp > 100.5 04/16/19 17:30 05/16/19 17:29 Amlodipine Besylate (Norvasc) 5 mg DAILY ORAL 04/18/19 09:00 05/18/19 08:59 04/19/19 08:35 Doxycycline Monohydrate (Doxycycline Monohydrate) 100 mg EVERY 12 HOURS ORAL 04/17/19 21:00 04/24/19 20:59 04/19/19 08:35 Hydralazine HCl (Apresoline) 25 mg Q4H PRN ORAL bp over 160 syst 04/19/19 11:15 05/19/19 11:14 Magnesium Oxide (Mag-Ox 400mg) 400 mg THREE TIMES A DAY ORAL 04/19/19 13:00 05/19/19 12:59 Mirtazapine (Remeron) 7.5 mg BEDTIME ORAL 04/16/19 21:00 05/16/19 20:59 04/18/19 21:36 Multivitamins (Multivitamins) 1 tab DAILY ORAL 04/17/19 09:00 05/17/19 08:59 04/19/19 08:35 Thiamine HCl (Vitamin B1) 100 mg DAILY ORAL 04/17/19 09:00 05/17/19 08:59 04/19/19 08:36 Marlon Chand MD Apr 19, 2019 12:40
[2019-04-19] MEDS ORDERED: MAGNESIUM100 MG PO (12:55)
[2019-04-19] MEDS ORDERED: MAGNESIUM OXID400 M1 ORAL (12:56)
[2019-04-19] MEDS ORDERED: Magnesium Oxide 400mg tab ORAL SCH (13:00)
--- NOTE | 2019-04-19 13:19 | NUR ---
DISCHARGE NOTES: RECEIVED ORDER TO CONTINUE MAGNESIUM OXIDE 400MG PO TID UPON DISCHARGE. DR Carrie SCHREIBER WAS AT BEDSIDE AND RN RECEIVED ORDER MRSA NARES AND WOUND COLONIZED. RN GAVE REPORT TO TONEY AT [facility]. RN ATTEMPTED TO CALL [facility]ION [facility]ANKS () PER FACESHEET. ONE NUMBER WAS DISCONNECTED AND OTHER NUMBER WAS WRONG. NO BELONGINGS
--- NOTE | 2019-04-19 15:08 | NUR ---
DISCHARGE NOTES: IV ACCESS DISCONTINUED. PT WAS DISCHARGED IN STABLE CONDITION WITH AMBULANCE PERSONNEL.
--- NOTE | 2019-04-19 17:34 | Surgery Progress Note ---
Surgery Progress Note Subjective Symptoms: improved, pain absent, tolerating diet, voiding well, passing flatus Objective Last 24 Hour Vital Signs Date Time Temp Pulse Resp B/P (MAP) Pulse Ox O2 Delivery O2 Flow Rate FiO2 04/19/19 11:49 97.5 80 20 141/77 (98) 97 04/19/19 09:00 Room Air 04/19/19 08:35 81 154/72 04/19/19 08:00 98.0 81 18 154/72 (99) 99 04/19/19 04:00 98.2 64 17 137/68 (91) 99 04/19/19 00:00 97.5 73 18 126/74 (91) 96 04/18/19 21:00 Room Air 04/18/19 20:00 98.3 74 19 134/72 (92) 96 I&O Intake and Output 04/18/19 04/19/19 18:59 06:59 Intake Total 600 ml 360 ml Balance 600 ml 360 ml Intake Oral 600 ml 360 ml # Voids 3 3 # Bowel Movements 1 Dressing: dry Wound: clean Cardiovascular: RSR Respiratory: clear Abdomen: soft, flat, non-tender, present bowel sounds Extremities: edema - improved , no tenderness, no cyanosis Laboratory Tests Test 04/19/19 07:10 White Blood Count 7.9 K/UL (4.8-10.8) Red Blood Count 4.72 M/UL (4.20-5.40) Hemoglobin 14.6 G/DL (12.0-16.0) Hematocrit 42.2 % (37.0-47.0) Mean Corpuscular Volume 89 FL (80-99) Mean Corpuscular Hemoglobin 30.9 PG (27.0-31.0) Mean Corpuscular Hemoglobin Concent 34.6 G/DL (32.0-36.0) Red Cell Distribution Width 10.6 % (11.6-14.8) L Platelet Count 263 K/UL (150-450) Mean Platelet Volume 6.2 FL (6.5-10.1) L Neutrophils (%) (Auto) 55.0 % (45.0-75.0) Lymphocytes (%) (Auto) 34.8 % (20.0-45.0) Monocytes (%) (Auto) 7.5 % (1.0-10.0) Eosinophils (%) (Auto) 1.9 % (0.0-3.0) Basophils (%) (Auto) 0.7 % (0.0-2.0) Sodium Level 141 MMOL/L (136-145) Potassium Level 4.2 MMOL/L (3.5-5.1) Chloride Level 105 MMOL/L (98-107) Carbon Dioxide Level 29 MMOL/L (21-32) Anion Gap 7 mmol/L (5-15) Blood Urea Nitrogen 15 mg/dL (7-18) Creatinine 0.7 MG/DL (0.55-1.30) Estimat Glomerular Filtration Rate > 60 mL/min (>60) Glucose Level 86 MG/DL (74-106) Calcium Level 9.4 MG/DL (8.5-10.1) Phosphorus Level 3.6 MG/DL (2.5-4.9) Magnesium Level 1.7 MG/DL (1.8-2.4) L Total Bilirubin 0.5 MG/DL (0.2-1.0) Aspartate Amino Transf (AST/SGOT) 16 U/L (15-37) Alanine Aminotransferase (ALT/SGPT) 17 U/L (12-78) Alkaline Phosphatase 68 U/L (46-116) Total Protein 7.8 G/DL (6.4-8.2) Albumin 3.5 G/DL (3.4-5.0) Globulin 4.3 g/dL Albumin/Globulin Ratio 0.8 (1.0-2.7) L Vitamin B12 Level 735 PG/ML (193-986) Folate 47.8 NG/ML (8.6-58.9) Plan Problems: (1) Abscess of left middle finger Assessment & Plan: 64F with left middle finger abscess s/p I&D cellulitis tender mild drainage erythema -wash daily with NS / soap and water - apply skin protectant and dressings daily and prn saturation - Abx as per ID - will monitor until improved improved d/c planning -thank you will follow with recs (2) Cellulitis of left middle finger Assessment & Plan: as above Travis Henao Apr 19, 2019 17:34
--- NOTE | 2019-04-20 10:10 | Discharge Summary ---
Discharge Summary Discharge Summary _ DATE OF ADMISSION: 04/16/2019 DATE OF DISCHARGE: 04/19/2019 DISCHARGED BY: Dr. Chan REASON FOR ADMISSION: 64 years old female, resident of senior care facility, with past medical history of CVA, coronary artery disease, history of MS 2000, hypertension, major depressive disorder, anxiety, depression, was sent for evaluation due to left middle finger infection. Patient was aphasic , but was able to nod to yes or no question. Patient did complain of pain . No reported fevers from the facility. Upon evaluation vital signs were stable. Patient undergone after digital block incision and drainage of paronychial abscess. Laboratory work-up revealed no leukocytosis . Urinalysis revealed evidence of urinary tract infection , +3 protein. Patient admitted for further management . CONSULTANTS: ID specialist Dr. Rojas senior geologist Dr. Guillaume surgery Dr. Henao psychiatrist HOSPITAL COURSE: Patient admitted to medical surgical floor. Patient started on empiric antibiotic. Urine culture revealed E. coli and another gram-negative bacilli. Wound culture revealed MRSA. Patient remained afebrile, no leukocytosis . Antibiotic regimen was provided as per ID recommendations with oral doxycycline. Complete antibiotic treatment at the facility. Surgeon followed. Further wound care provided as per surgeon recommendation. Pain management was addressed as needed. Blood pressure was managed with calcium channel ez. Blood pressure out of control. Antihypertensive regimen further titrated as per senior geologist to keep blood pressure under control. Renal parameters and electrolytes were closely monitored. Magnesium was replaced. Supportive care provided. Patient clinically stabilized and was ready for transfer back to senior care facility for continuation of care. FINAL DIAGNOSES: Paronychia left middle finger Left middle finger abscess with MRSA, status post I&D Left middle finger cellulitis Hypertension out of control Major depression DISCHARGE MEDICATIONS: See Medication Reconciliation list. DISCHARGE INSTRUCTIONS: Patient was discharged to the senior care facility. Follow up with medical doctor at the facility. I have been assigned to dictate discharge summary for this account. I was not involved in the patient's management. Loly Wheeler NP Apr 20, 2019 10:10
== END 2019-04-19 14:25 | DRG 603 ==
LOC: EDBD 14:04 → EMR 15:27 → EDBEDREQ 15:36 → OBSVTOIN 15:44 → 4E 15:44 → EDBEDREQ 16:03
PROC: 0H9GXZZ Drainage of Left Hand Skin, External Approach (ICD-10-PCS; principal; 2019-04-16)
DX: L03.012 Cellulitis of left finger (principal); L02.512 Cutaneous abscess of left hand; N39.0 Urinary tract infection, site not specified; I10 Essential (primary) hypertension; F10.11 Alcohol abuse, in remission; F32.9 Major depressive disorder, single episode, unspecified; F41.9 Anxiety disorder, unspecified; B95.62 Methicillin resistant Staphylococcus aureus infection as the cause of diseases classified elsewhere; I25.10 Atherosclerotic heart disease of native coronary artery without angina pectoris; I25.2 Old myocardial infarction; F99 Mental disorder, not otherwise specified
CPT/HCPCS: 36415; 80053; 81001; 82607; 82746; 83735; 84100; 85025; 87070; 87081; 87086; 87181; 87205; 90471; 90715; 93970; 96374; 99285